=== PATIENT | male | born 1995 | race Caucasian/White ===

== ENCOUNTER 2020-08-20 10:27 | Emergency (ER) | payer MEDICAID ==
[~2020-08-20] VITALS: Ht 167.6 cm; Wt 57.0 kg
[2020-08-20] MEDS ORDERED: potassium 10mEq/100ml NS w/LIDOcaine (10mg/bag) IV ONE (12:10)
[2020-08-20] MEDS ORDERED: potassium Cl 10 mEq/100mL bag IV ONE (12:15)
[2020-08-20] MEDS ORDERED: CefTRIAXone 250MG IM Kit w/LIDOcaine IM ONE (12:20)
[2020-08-20] MEDS ORDERED: azithromycin 250mg tablet PO ONE (12:20)
[2020-08-20 12:57] VITALS: BP 135/83
== END 2020-08-20 12:50 | disposition home or self-care (01) ==
LOC: ER 10:28
DX: A64 Unspecified sexually transmitted disease (principal)
CPT/HCPCS: 36415; 87491; 87591; 96372; 99283; J0696

== ENCOUNTER 2024-12-26 14:26 | Emergency (ER) | payer MEDICAID ==
[~2024-12-26] VITALS: Ht 167.6 cm; Wt 60.5 kg
[2024-12-26 15:51] LABS: BILIRUBIN,URINE NEGATIVE (Neg); CLARITY,URINE CLOUDY (Clear); COLOR,URINE YELLOW (Yellow); GLUCOSE, URINE NEGATIVE (Neg); KETONES,URINE NEGATIVE (Neg); LEUKOCYTE ESTERASE ,URINE NEGATIVE (Neg); NITRITES, URINE NEGATIVE (Neg); OCCULT BLOOD,URINE LARGE (Neg); PROTEIN,URINE 30 mg/dl (Neg); UROBILINOGEN,URINE 0.2 E.U/dL (0.2-1.0)
[2024-12-26 16:02] LABS: UA COLLECTION TYPE URINAL
[2024-12-26 16:03] LABS: BACTERIA,URINE 1+ /HPF (Neg); RBC,URINE TNTC /HPF (0-2); SQUAMOUS EPITHELIAL CELL,UR FEW /LPF (FEW); WBC,URINE NONE SEEN /HPF (0-4)
[2024-12-26] MEDS ORDERED: PHEN-716 PO (16:35)
[2024-12-26 16:44] VITALS: BP 117/67; PULSE 65; RESP 16; TEMP 98.8; O2SAT 99
== END 2024-12-26 16:47 | disposition home or self-care (01) ==
LOC: ER 14:26
DX: R31.9 Hematuria, unspecified (principal)
CPT/HCPCS: 36415; 81001; 87491; 99283

== ENCOUNTER 2024-12-27 12:28 | Emergency (ER) | payer MEDICAID ==
[~2024-12-27] VITALS: Ht 167.6 cm; Wt 61.2 kg
[~2024-12-27 12:28] MED LIST: PHEN-716 PO
[2024-12-27 12:34] VITALS: BP 129/76; PULSE 105; TEMP 98.6; O2SAT 97
[2024-12-27 14:32] LABS: BASOPHILS % (AUTO) 0.4 % (0-1); EOSINOPHILS # (AUTO) 0.2 X10'3 (0-0.9); HEMATOCRIT 44.3 % (42.0-52.0); LYMPHOCYTES # (AUTO) 2.1 X10'3 (1.1-4.8); LYMPHOCYTES % (AUTO) 22.2 % (21-51); MEAN CORPUSCULAR HEMOGLOBIN 30.5 PG (27.0-31.0); MEAN CORPUSCULAR VOLUME 89.9 FL (78-98); MEAN PLATELET VOLUME 6.2 FL (7.4-10.4); MONOCYTES # (AUTO) 0.9 X10'3 (0-0.9); MONOCYTES % (AUTO) 8.9 % (2-12); NEUTROPHILS # (AUTO) 6.4 X10'3 (1.8-7.7); NEUTROPHILS % (AUTO) 66.5 % (42-75); PLATELET COUNT 328 X10'3 (140-440); RED BLOOD COUNT 4.93 X10'6 (4.70-6.10); RED CELL DISTRIBUTION WIDTH 13.2 % (11.5-14.5); WHITE BLOOD COUNT 9.6 X10'3 (4.5-11.0)
[2024-12-27] MEDS: ketorolac trometh 30MG/ML vial 30 MG/ML VIAL IM ONE (14:37)
[2024-12-27 14:44] LABS: APTT 28 SECONDS (22-32); PROTHROMBIN TIME 10.3 SECONDS (9.0-12.0)
[2024-12-27 14:47] LABS: CLARITY,URINE CLEAR (Clear); COLOR,URINE ORANGE (Yellow)
[2024-12-27 14:48] LABS: ALANINE AMINOTRANSFERASE 33 U/L (12-78); ALBUMIN/GLOBULIN RATIO 1.2 (1.1-1.5); ALKALINE PHOSPHATASE 104 IU/L (46-116); ANION GAP 5 (8-16); ASPARTATE AMINO TRANSFERASE 13 U/L (10-37); BILIRUBIN,TOTAL 0.3 MG/DL (0.1-1.0); BLOOD UREA NITROGEN 13 MG/DL (7-18); BUN/CREATININE RATIO 13.4 (10.0-20.0); CALCIUM 9.1 MG/DL (8.5-10.1); CHLORIDE 107 MMOL/L (99-107); CREATININE 0.97 MG/DL (0.60-1.10); GLUCOSE 103 MG/DL (70-104); LIPASE 35 U/L (16-77); SODIUM 141 MMOL/L (135-145); TOTAL CARBON DIOXIDE 28.8 MMOL/L (24-32); TOTAL PROTEIN 7.4 G/DL (6.4-8.2); eCRCL 97 ML/MIN; eGFR > 90 ML/MIN
[2024-12-27 14:50] LABS: UA COLLECTION TYPE NON-SPECIFIED
[2024-12-27 14:52] LABS: BACTERIA,URINE NONE SEEN /HPF (Neg); MUCUS STRANDS NONE SEEN /LPF (Neg); SQUAMOUS EPITHELIAL CELL,UR NONE SEEN /LPF (FEW); WBC,URINE NONE SEEN /HPF (0-4)
[2024-12-27 16:44] VITALS: RESP 16
== END 2024-12-27 18:07 | disposition home or self-care (01) ==
LOC: ER 12:28
DX: N20.0 Calculus of kidney (principal)
CPT/HCPCS: 36415; 74176; 80053; 81001; 83690; 85025; 85610; 85730; 96372; 99285; J1885

== ENCOUNTER 2025-04-18 21:39 | Emergency (ER) | payer MEDICAID ==
[~2025-04-18] VITALS: Ht 167.6 cm; Wt 55.0 kg
[2025-04-18] MEDS: LIDOcaine 1% W/epiNEPHrine 1:100,000 20ml vial SQ STA (22:44)
--- NOTE | 2025-04-18 23:45 | Physician Documentation ---
History of Present Illness ~ Chief Complaint: Laceration Stated Complaint: THUMB LAC Time Seen by MD: 22:05 Primary Medical Doctor: none HPI Patient is seen today with complaints of laceration to his right thumb from a grinder operator automatic just prior to arrival. Patient has no other concern or complaint at this time. Tetanus Within 5 Years: No Medication Reconciliation Allergies: Coded Allergies: No Known Allergies (Unverified , 08/20/20) Scheduled Phenazopyridine HCl (Pyridium), 1 TAB PO Q8H Past Medical History Past Medical History: No Pertinent History Past Surgical History: no surgical history Lives In: Home Review of Systems Constitutional: Denies: chills, fever, weakness Eyes: Denies: pain, blurred vision ENT: Denies: ear pain, nose pain, throat pain, mouth pain Respiratory: Denies: cough, shortness of breath Cardiovascular: Denies: chest pain, palpitations Gastrointestinal: Denies: abdominal pain, nausea, vomiting Genitourinary: Denies: burning, dysuria Male Genitalia: Denies: penile discharge, testicular pain Neurological: Denies: headache, dizziness Musculoskeletal: Denies: pain, swelling Integumentary: Denies: rash, lesions Allergic/Immunologic: Denies: hives, itching Hematologic/Lymphatic: Denies: no symptoms reported Psychiatric: Denies: depression, anxiety Physical Exam Vital Signs: Temperature: 97.8, Source: Temporal, Heart Rate: 100, Respiratory Rate: 16, BP: 141/85, Pulse Oximetry: 98, Weight: 55.000 Oxygen Flow Rate: 0 Physical Exam General: Awake and Alert, no acute distress. HEENT: Conjunctiva pink, Sclera clear, Mucus Membranes moist. Neck: Supple without masses and tenderness. Resp: Unlabored. Lungs clear to auscultation bilaterally. Heart: Regular Rate and rhythm, normal S1 and S2 without murmur, rub or gallop. Musculoskeletal: Patient on exam has 1.5 cm laceration to the radial aspect of the right thumb just lateral to the nail without any involvement of the nail or nailbed or matrix. Patient is neurovascularly intact distally. Motor function is intact distally. Extremities: No cyanosis,clubbing or edema. Skin: Warm and Dry. Progress Results/Orders Results/Orders Completed Orders - FAZAL CHAVIRA PAC Lidocaine 1% W/Epi 1:100,000 (Xylocaine (04/18/25 22:05) Vital Signs 04/18/25 21:47 Temp 97.8 Pulse 100 Resp 16 B/P (MAP) 141/85 Pulse Ox 98 O2 Flow Rate 0 Medical Decision Making Findings Patient is seen today with complaints of laceration to his right thumb from a grinder operator automatic just prior to arrival. Patient has no other concern or complaint at this time. Laceration to right thumb was sutured today by myself. Patient tolerated well. Patient will follow up in seven days for suture removal. Return to ED with any worsening, concerning or changing symptoms. Departure Disposition: 01 HOME / SELF CARE / HOMELESS Impression: Primary Impression: Laceration Condition: Improved Discharge Instructions: Laceration Care, Adult, [id number] Additional Instructions: Laceration to right thumb was sutured today by myself. Patient tolerated well. Patient will follow up in seven days for suture removal. Return to ED with any worsening, concerning or changing symptoms. Referrals: NO PRIMARY CARE PROVIDER (PCP) Signature Scribe Signature: No scribe Attestation: No scribe FAZAL CHAVIRA PAC April 18, 2025 23:45
[2025-04-19 00:08] VITALS: BP 120/78; PULSE 62; RESP 16; TEMP 97.8; O2SAT 98
== END 2025-04-19 00:12 | disposition home or self-care (01) ==
LOC: ER 21:39
DX: S61.011A Laceration without foreign body of right thumb without damage to nail, initial encounter (principal); X58.XXXA Exposure to other specified factors, initial encounter; Y93.89 Activity, other specified; Y92.89 Other specified places as the place of occurrence of the external cause; Y99.8 Other external cause status
CPT/HCPCS: 12001; 99282; A6449

== ENCOUNTER 2025-04-26 15:29 | Emergency (ER) | payer MEDICAID ==
[~2025-04-26] VITALS: Ht 167.6 cm; Wt 61.4 kg
[2025-04-26 15:31] VITALS: BP 129/80; PULSE 90; RESP 16; O2SAT 100
[2025-04-26 17:41] VITALS: TEMP 97.8
== END 2025-04-26 17:46 | disposition left against medical advice (07) ==
LOC: ER 15:30
DX: S61.011D Laceration without foreign body of right thumb without damage to nail, subsequent encounter (principal); Z53.21 Procedure and treatment not carried out due to patient leaving prior to being seen by health care provider; X58.XXXD Exposure to other specified factors, subsequent encounter

== ENCOUNTER 2025-08-11 00:19 | Emergency (ER) | payer MEDICAID ==
[~2025-08-11] VITALS: Ht 167.6 cm; Wt 61.6 kg
--- NOTE | 2025-08-11 00:42 | Physician Documentation ---
History of Present Illness ~ Chief Complaint: Toe pain Stated Complaint: LEFT FOOT TOE PAIN Time Seen by MD: 00:41 Primary Medical Doctor: none HPI Patient presents to the emergency room with left great toe pain. He states he dropped a car part on it two days ago in his concerned as he has black under the toenail Tetanus witin 5 years: No Medication Reconciliation Allergies: Coded Allergies: No Known Allergies (Unverified , 08/20/20) Scheduled Phenazopyridine HCl (Pyridium), 1 TAB PO Q8H Past Medical History Past Medical History: No Pertinent History Past Surgical History: no surgical history Lives In: Home Review of Systems ROS All review of systems negative except as per HPI Physical Exam Vital Signs: Temperature: 97.8, Heart Rate: 85, Respiratory Rate: 16, BP: 122/84, Pulse Oximetry: 100, Weight: 61.600 Oxygen Flow Rate: 0 Physical Exam General: Patient is awake, alert, oriented x4 in no acute distress and well appearing.~ Head: Normocephalic and atraumatic. Eyes: Conjunctival normal. EOMI. PERRL. ENT: Mucous membranes moist. Neck: Supple, trachea is midline. Chest: Clear to auscultation bilaterally without rales, rhonchi, or wheezes. There is no accessory muscle use or retractions. Cardiac: RRR without murmurs, gallops, or rubs. Extremity: Subungual hematoma noted to patient's left great toe without signs of infection. Moving without limitation Progress Results/Orders Results/Orders Vital Signs 08/11/25 00:21 Temp 97.8 Pulse 85 Resp 16 B/P (MAP) 122/84 Pulse Ox 100 O2 Flow Rate 0 Medical Decision Making Findings Patient presented to the emergency room with toe pain. Differentials include but are not limited to fractures, dislocation, foreign body, soft tissue injury. Patient able to flex and extend toe without limitation he had not feel he requires an x-ray. Offered to relieve subungual hematoma however he declined. Departure Disposition: 01 HOME / SELF CARE / HOMELESS Impression: Primary Impression: Subungual hematoma Condition: Stable Discharge Instructions: Subungual Hematoma, [id number] Referrals: NO PRIMARY CARE PROVIDER (PCP) Signature Scribe Signature: No scribe Attestation: The note accurately reflects work and decisions made by me.J Luis Singh MD 08/11/25 00:45 J LUIS SINGH MD Aug 11, 2025 00:42
[2025-08-11 00:54] VITALS: BP 122/80; PULSE 70; RESP 16; TEMP 98.1; O2SAT 99
== END 2025-08-11 00:55 | disposition home or self-care (01) ==
LOC: ER 00:20
DX: S90.212A Contusion of left great toe with damage to nail, initial encounter (principal); X58.XXXA Exposure to other specified factors, initial encounter; Y93.89 Activity, other specified; Y92.89 Other specified places as the place of occurrence of the external cause; Y99.8 Other external cause status
CPT/HCPCS: 99282